=== PATIENT | female | born 1955 | race Caucasian/White ===

== ENCOUNTER 2025-07-25 17:02 | Emergency (ER) | payer OTHER, SELFPAY ==
--- OUTSIDE RECORDS SUMMARY | 2025-07-25 17:04 | XMS_ITS | Clinical Summary ---
Author Organization [employer] [facility] Address [address] [place] [address] Care Team Providers Care College Tutor Name Role Phone Arturo Gross MD Primary Care Provider Allergies No known active allergies Medications CALCIUM 500 WITH VITAMIN D 500 MG (1,250 MG)-200 UNIT TAB two tabs bid 0 8 Active alendronate (FOSAMAX) 70 mg tabletIndications: Osteoporosis, unspecified osteoporosis type, unspecified pathological fracture presence Take 1 Tablet (70 mg) by mouth once a week in the morning. Take on empty stomach with full glass of water. Do not lie down for 1 hr. 13 Tablet 3 4 Active apixaban (Eliquis) 5 mg tabletIndications: Pulmonary embolism, bilateral (HC) Take 1 Tablet (5 mg) by mouth two times daily. 180 Tablet 3 4 Active rosuvastatin (CRESTOR) 10 mg tabletIndications: Hyperlipidemia, unspecified hyperlipidemia type Take 1 Tablet (10 mg) by mouth at bedtime. 90 Tablet 3 4 Active lisinopriL (PRINIVIL; ZESTRIL) 10 mg tabletIndications: Benign essential HTN Take 1 Tablet (10 mg) by mouth once daily. 90 Tablet 5 Active lisinopriL 10 mg tabletIndications: Benign essential HTN Take 1 Tablet (10 mg) by mouth once daily. 90 Tablet 07/07/21/20 25 Discontin ued(Reord er (E-cancel not sent)) Active Problems Problem Noted Date Diagnosed Date Prediabetes 08/27/2024 Hyperlipidemia 08/27/2024 Guaiac positive stools; 11/202308/27/2024 coronary artery calcium score 43 202210/03/2023 Osteoporosis: Alendronate started June 2023 . 07/04/2023 Benign essential HTN 09/10/2021 Adenomatous colon polyp 03/13/2015 Overview (03/13/2015): Colonoscopy 02/2015 polyp repeat in 5 years Pulmonary embolism / Left DV T 07/20/2021. Lifelong anticoag per Heme 02/04/2013 Resolved Problems Problem Noted Date Diagnosed Date Resolved Date Melanoma 02/21/2023 07/04/2023 Overview (02/21/2023): 06/15/17: Left arm, malignant melanoma: Excised, Lan, 07/09/17 Malignant melanoma of left u pper extremity including shoulder 06/26/2019 08/13/2021 Other pulmonary embolism and infarction 05/21/2012 02/04/2013 alf (current) use of anticoagulants 05/21/2012 02/04/2013 Onychomycosis 05/21/2012 05/21/2012 Onychomycosis 05/21/2012 05/21/2012 Cough 07/03/2008 11/16/2020 Paroxysmal atrial tachycardia 09/27/2022 Encounters Date Type Department Care Team Description 07/21/2025 Refill [facility] [address] [place] [address] Arturo Gross MD Refill Request (LISINOPRIL 10MG TABS) 04/28/2025 Refill [facility] [address] [place] [address] Arturo Gross MD Refill Request (Lisinopril 10mg tabs) from Last 3 Months Immunizations Immunization Administration Dates Next Due COVID-19 VACCINE COMIRNATY ([employer] 30MCG/0.3ML) 12YO+ PFS 08/15/2023 COVID-19 VACCINE SPIKEVAX (M ODERNA 50MCG/0.5ML) 12YO+ PFS 08/08/2024 COVID-19 vaccine (Moderna 100mcg/0.5mL) PF, MDV 04/20/2022,12/01/2020,11/03/2020 COVID-19 vaccine (Moderna 50 mcg/0.5mL) 12YO+ BIVALENT PF, MDV 08/03/2022 COVID-19 vaccine ([employer]-Bio NTech 30mcg/0.3mL) PF, MDV 09/10/2021 Hepatitis B, Unspecified 10/09/1992,04/10/1992,0 03/03/1992 Influenza Virus, Unspecified 08/04/2015 Influenza, High-dose Inactivated 08/08/2024 Influenza, High-dose Quadriv alent Inactivated 08/15/2023,08/03/2022 Influenza, IIV3 (Age >=3 years) 08/23/20 13,08/27/2012,08/26/2008,08/25,07/30/2007,08/23/2006 Influenza, IIV4 08/13/2021, 0,07/24/2019,09/22 Pneumococcal Conj 20-valent (Prevnar 20) 09/27/2022 RSV, Bivalent Vaccine Recons tituted (Abrysvo 120MCG/0.5mL) 08/29/2023 Td (Age >=7 Years) 06/26/2019,02/02/2000 Tdap 05/09/2008 Zoster (Shingrix-RZV, recombinant) 10/21/2019, Family History Medical History Relation Name Comments Diabetes type II Father Asthma Maternal Grandfather Emphysema Maternal Grandfather Heart Disease Maternal Grandmother Alzheimer's disease Mother Hyperlipidemia Mother Cancer-breast Paternal Aunt Cancer-colon Paternal Grandfather Good Health Paternal Grandmother Lived t o age 101 Deep vein thrombosis Sister 1 Factor V Leiden deficiency Sister 1 Pulmonary embolism Sister 1 Good Health Sister 2 Good Health Sister 3 Relation Name Status Comments Father Alive Maternal Grandfather Maternal Grandmother Mother Paternal Aunt Paternal Grandfather Paternal Grandmother Sister 1 Alive Sister 2 Alive Sister 3 Alive Social History Tobacco Use Types Packs/Day Years Used Date Smoking Tobacco: Never Smokeless Tobacco: Never Tobacco Cessation:Counseling Given: No Alcohol Use Standard Drinks/Week Comments No 0 (1 standard drink = 0.6 oz pur e alcohol) PHQ-2 Answer Date Recorded PHQ-2 TOTAL SCORE 0 08/27/2024 Social Connections Answer Date Recorded Do you often feel lonely or isolated from those around you? 0 10/03/2023 Financial Resource Strain Answer Date R ecorded Difficulty of Paying Living Expenses 3 10/03/2023 Difficulty of Paying Living Expenses Not on file 10/03/2023 Food Insecurity Answer Date Recorded Do you worry your food will run out before you are able to buy more? 1 10/03/2023 Transportation Needs Answer Date Record ed Does lack of transportation keep you from medica l appointments? 1 10/03/2023 Does lack of transportation keep you from work, meetings or getting things that you need? 1 10/03/2023 Housing Stability Answer Date Recorded What is your housing situation today? 1 10/03/2023 Utilities Answer Date Recorded Do you have trouble paying f or utilities (for example, heat, electricity, water, phone)? 1 10/03/2023 Comments No Sex and Gender Information Value Date Recorded Sex Assigned at Not on file Legal Sex Female 6:59 AM STAFF RADIATION THERAPIST Gender Identity Not on file Sexual Orientation Not on file Occupation Industry Job Start Date Job End Date nurse Not on file Not on file Not on file Obstetrics History Para Term AB IAB SAB Ectopic Multiple Livin g Live Births 2 2 2 Date Outcome GA Total Labor Labor/2nd/3rd Weight Sex Type Anes PTL [place] A1 A5 Name Clin Para Para Last Filed Vital Signs Vital Sign Reading Time Taken Comments Blood Pressure 101/68 03/05/2025 9:24 AM CDT Pulse 65 03/05/2025 9:24 AM CDT Temperature 37.2 C (98.9 F) 12/11/2023 3:47 PM STAFF RADIATION THERAPIST Respiratory Rate 16 12/11/2023 5:32 PM STAFF RADIATION THERAPIST Oxygen Saturation 97% 03/05/2025 9:24 AM CDT Inhaled Oxygen Concentration - - Weight 69.2 kg (152 lb 9.6 oz) 03/05/2025 9:24 A M CDT Height 163.4 cm (5' 4.33) 08/27/2024 11:[address] Body Mass Index 25.92 08/27/2024 11:38 AM STAFF RADIATION THERAPIST Plan of Treatment Health Maintenance Due Date Last Done Comments Colonoscopy through age 75 09/11/2015 03/11/2015 COVID-19 vaccine series ( season) 2025 08/08/2024, 08/15/2023, 08/03/2022, Additional history exists Influenza Vaccine (#1) 2025 , 08/13/2021, 07/14/2020, Additional history exists BMI (ht and wt on same day) for age 18+ 08/27/2025 08/27/2024, 10/03/2023, 09/27/2022, Additional history exists Depression screening for age 12+ 08/27/2025 08/27/2024, 10/03/2023, 09/29/2022, Additional history exists Mammogram for age 45-75 01/06/2026 01/07/20, 03/09/2022, 02/16/2022, Additional history exists Tetanus booster 06/26/2029 06/26/2019, 04/22, 02/02/2000 Lipids for age 45-75 08/27/2029 08/27/2024, 09/26/2023, 09/27/2022, Additional history exists Hepatitis B series for 19+ Completed 10/09, 04/10/1992, 03/03/1992 Zoster (shingles) series for age 50+ Completed 10/21/2019, 06/26/2019 Hepatitis C screening for ag e 18-79 Completed 09/27/2022 Pneumococcal series for age 50+ Completed 2 DEXA/DXA scan for age 65+ Completed 06/01/2023, RSV vaccine for adults or Completed 08/29/2023 Procedures Procedure Name Priority Date/Time Associated Diagnosis Comments XR MAMMO ИВАН BILAT SCREEN Routine 01/06/2025 8:56 AM CDT Encounter for screening mammogram for malignant neoplasm of breast LIPID PANEL W REFLEX MEASURED LDL Routine 08/27/2024 12:05 PM STAFF RADIATION THERAPIST Hyperlipidemia, unspecified hyperlipidemia type XR DXA BONE DENSITY 2 SITES AXIAL Routine 06/01/2023 11:28 AM CDT Asymptomatic postmenopausal state ANTI HCV Routine 09/27/2022 10:54 AM STAFF RADIATION THERAPIST Need for hepatitis C screening test from Last 3 Months or Most Recently Relevant to Health Maintenance Results * XR MAMMO ИВАН BILAT SCREEN (01/06/2025 8:56 AM CDT) Anatomical Region Laterality Modality BREASTS, Breast Left, Breast Right Bilateral Mammography Impressions 01/06/2025 2:16 PM CDT There is no radiographic evidence for malignancy. Recommend annual mammograms. MAMMOGRAM ASSESSMENT: ACR 1 Negative PATIENTS: You will also receive a letter with your examination results in an easy to read format. If you have questions about your results, please contact your referring provider. Narrative 01/06/2025 2:16 PM CDT For Patients: As a result of the Century Cures Act, medical imaging exams and procedure reports are released immediately into your electronic medical record. You may view this report before your referring provider. If you have questions, please contact your health care provider. XR MAMMO ИВАН BILAT SCREEN [[id number]] CLINICAL HISTORY: This is an asymptomatic 69 y.o. patient. INDICATION FOR EXAM: Mammogram Screening. TECHNIQUE: CC and MLO views were obtained. This study was evaluated with the assistance of Computer-Aided Detection. Breast Tomosynthesis was used in interpretation. COMPARISON FILM: Yes 02/16/22 [facility] 01/14/21 [facility] FINDINGS: There are scattered areas of fibroglandular density. There are no dominant masses, suspicious micro calcifications or areas of architectural distortion. us Arturo Gross MD MAMMO Final Result * (ABNORMAL) LIPID PANEL W REFLEX MEASURED LDL (08/27/2024 12:05 PM STAFF RADIATION THERAPIST) CHOLESTEROL, TOTAL 111 <200 mg/dL [facility] HDL CHOLESTEROL 44(L) > OR = 50 mg/dL [facility] TRIGLYCERIDES 113 <150 mg/dL [facility] LDL-CHOLESTEROL 47 mg/dL (calc) [facility] Comment: Reference range: <100 Desirable range <100 mg/dL for primary prevention; <70 mg/dL for patients with CHD or diabetic patients with > or = 2 CHD risk factors. LDL-C is now calculated using the Sanjeev calculation, which is a validated novel method providing better accuracy than the Friedewald equation in the estimation of LDL-C. Kiko KLINE et al. MAT. 2013;310(19): 7806-6614 (http://education.ViaBill/faq/YFR875) CHOL/HDLC RATIO 2.5 <5.0 (calc) [facility] NON HDL CHOLESTEROL 67 <130 mg/dL (calc) [facility] Comment: For patients with diabetes plus 1 major ASCVD risk factor, treating to a non-HDL-C goal of <100 mg/dL (LDL-C of <70 mg/dL) is considered a therapeutic option. Blood BLOOD SPECIMEN / Unknown 08/27/2024 12:05 PM STAFF RADIATION THERAPIST 08/27/2024 12:06 PM STAFF RADIATION THERAPIST Arturo Gross MD CHEMISTRY Final Result [facility] [address] [place] [address], [facility] [address] [place] [address] * (ABNORMAL) XR DXA BONE DENSITY 2 SITES AXIAL (06/01/2023 11:28 AM CDT) Anatomical Region Laterality Modality Spine, HIPS, HIPL, HIPR Other Impressions 06/06/2023 12:28 PM CDT Osteoporosis. RECOMMENDATIONS: The National Osteoporosis Foundation recommends pharmacologic treatment for patients with T-scores of -2.5 or less, patients with prior history of fragility fractures, or patients with 10-year probability of greater than 3% at hips or greater than 20% of suffering major osteoporotic fractures. Recommend continued optimization of calcium and vitamin D intake through dietary means and/or supplementation and regular exercise. Consider pharmacologic therapy for osteoporosis. Follow-up bone density reading in 2 years if therapy initiated to assess therapeutic efficacy. Leonie Santamaria PA-C [facility] 06/06/2023 Narrative 06/06/2023 12:28 PM CDT For Patients: Results are automatically released to your [facility] ([facility]) account once available, in compliance with federal regulations. This means that you may see your results before your provider has had a chance to review them. Please allow 2-3 business days for your provider to comment on the results. XR DXA Bone Mineral Density (BMD) EXAM LOCATION: [facility] [address] [facility] [address] PATIENT NAME: Lisbet Mirza DATE OF : 1955 EXAM DATE: 06/01/2023 REQUESTING PROVIDER: Arturo Gross MD GENDER AT : female HEIGHT: 5' 4.29 (09/27/2022) WEIGHT: 151 lb (04/19/2023) MENOPAUSAL STATUS: Postmenopausal RACE/ETHNICITY: White RISK FACTORS: Height Loss (2 inches or more) and White Race CURRENT MEDICATION FOR BONE LOSS: NONE INDICATION: Follow-up of existing osteopenia and Post-Menopause COMPARISON DATE(S): 2006 DXA scans are compared to prior studies for a patient only when the two (or more) studies were performed on the same scanner. It is not possible to compare data generated on one scanner to data from another because there are not standards in DXA equipment. This applies even if the two scanners are made by the same scanning tech. PROCEDURE: Dual-energy x-ray absorptiometry performed with routine technique. Reporting is completed in the form of a T-score. The T-score represents the standard deviation from peak bone mass based on young healthy adult. A Z-score is used for diagnosis in premenopausal women, and for men under the age of 50. FINDINGS: RESULT LUMBAR SPINE L1 - L4 BMD: 0.807 g/cm2 T-Score: - 3.1 Z-Score: - 1.5 Change from prior in 2006: Decrease 20.6%. RESULTS FEMUR Left femoral neck BMD: 0.742 g/cm2 T-Score: - 2.1 Z-Score: - 0.6 Change from prior in 2006: Decrease 14.6%. Right femoral neck BMD: 0.700 g/cm2 T-Score: - 2.4 Z-Score: - 0.9 Change from prior in 2007: Decrease 18.1%. Left hip BMD: 0.709 g/cm2 T-Score: - 2.4 Z-Score: - 1.1 Change from prior in 2006: Decrease 15.9%. Right hip BMD: 0.695 g/cm2 T-Score: - 2.5 Z-Score: - 1.2 Change from prior in 2006: Decrease 14.1%. WHO criteria: Normal: T-score at or above -1 SD Osteopenia: T-score between -1.1 and -2.4 SD Osteoporosis: T-score at or below -2.5 SD FRAX RISK CALCULATION (USED FOR OSTEOPENIA ONLY): 10-year probability of major osteoporotic fracture: 12.9%. 10-year probability of hip fracture: 2.8%. us Arturo Gross MD DEXA Final Result * ANTI HCV (09/27/2022 10:54 AM STAFF RADIATION THERAPIST) [facility] HEPATITIS C ANTIBODY Non-React imelda Non-React imelda 09/29/2022 3:00 PM STAFF RADIATION THERAPIST [facility] Comment:Antibodies to HCV no t detected; does not exclude the possibility of exposure to HCV. Blood BLOOD SPECIMEN / Unknown Venipuncture / Unknown 09/27/2022 10:54 AM STAFF RADIATION THERAPIST 09/27/2022 10:54 AM STAFF RADIATION THERAPIST us Arturo Gross MD SEND OUTS Final Result [facility] [address] [place] [address], [place] from Last 3 Months or Most Recently Relevant to Health Maintenance Insurance [id number] [place] [id number] [facility] [address] [place] [id number] Advance Directives Documents on File Type Date Recorded Patient Classroom Coordinator Expl anation Healthcare Directive 01/11/2021 05/10/2021 Healthcare Directive 01/11/2021 021 Care Teams College Tutor Relationship Specialty Start Date End Date Arturo Gross MD [address] [place] [address] PCP - General Family Practice 11/16/20
[2025-07-25 17:17] VITALS: BP 117/77; PULSE 91; RESP 16; TEMP 37.1; O2SAT 91; BMI 22.6
== END 2025-07-25 17:46 | disposition left against medical advice (07) ==
PROVIDERS: Emergency Provider Family Medicine; PCP Family Medicine
DX: Z53.21 Procedure and treatment not carried out due to patient leaving prior to being seen by health care provider (principal)
CPT/HCPCS: 99281

== ENCOUNTER 2025-07-29 16:25 | Emergency (ER) | payer OTHER, SELFPAY ==
--- OUTSIDE RECORDS SUMMARY | 2025-07-29 16:27 | XMS_ITS | Clinical Summary ---
Author Organization [employer] [facility] Address [address] [place] [address] Care Team Providers Care Food Crops Farm Hand Name Role Phone Arturo Gross MD Primary [...] Other pulmonary embolism and infarction 05/21/2012 02/04/2013 senior living (current) use of anticoagulants 05/21/2012 02/04/2013 Onychomycosis 05/21/2012 05/21/2012 Onychomycosis 05/21/2012 05/21/2012 Cough 07/03/2008 11/16/2020 Paroxysmal atrial tachycardia 09/27/2022 Encounters Date Type Department Care Team Description 07/29/2025 Nurse Triage [facility] Centralized Nurse Triage Arturo Gross MD Blood In Urine 07/21/2025 Refill [facility] [address] [place] [address] Arturo Gross MD Refill Request (LISINOPRIL 10MG TABS) 04/28/2025 Refill [facility] [address] [place] [address] Arturo Gross MD Refill Request (Lisinopril 10mg tabs) from Last 3 Months Immunizations Immunization Administration Dates Next Due COVID-19 VACCINE COMIRNATY (PFI[employer]ER-BIONTECH 30MCG/0.3ML) 12YO+ PFS 08/15/2023 COVID-19 VACCINE SPIKEVAX (M ODERNA 50MCG/0.5ML) 12YO+ PFS 08/08/2024 COVID-19 vaccine (Moderna 100mcg/0.5mL) PF, MDV 04/20/2022,12/01/2020,11/03/2020 COVID-19 vaccine (Moderna 50 mcg/0.5mL) 12YO+ BIVALENT PF, MDV 08/03/2022 COVID-19 vaccine (Pfizer-Bio NTech 30mcg/0.3mL) PF, MDV 09/10/2021 Hepatitis B, [...] on file Legal Sex Female 6:59 AM ENVIRONMENTAL LEAD Gender Identity Not on file Sexual Orientation [...] 37.2 C (98.9 F) 12/11/2023 3:47 PM ENVIRONMENTAL LEAD Respiratory Rate 16 12/11/2023 5:32 PM ENVIRONMENTAL LEAD Oxygen Saturation 97% 03/05/2025 9:24 AM CDT Inhaled Oxygen Concentration - - Weight 69.2 kg (152 lb 9.6 oz) 03/05/2025 9:24 A M CDT Height 163.4 cm (5' 4.33) 08/27/2024 11:[address] Body Mass Index 25.92 08/27/2024 11:38 AM ENVIRONMENTAL LEAD Plan of Treatment Upcoming Encounters Date Type Department Care Team (Late st Contact Info) Description 09/01/2025 10:05 AM ENVIRONMENTAL LEAD Office Visit [facility] [address] [place] [address] Arturo Gross MD [address] [place] [address] Health Maintenance Due Date Last Done Comments [...] 09/27/2022 Pneumococcal series for age 50+ Completed DEXA/DXA scan for age 65+ Completed 06/01/2023, RSV vaccine for adults or Completed 08/29/2023 Procedures Procedure Name Priority Date/Time Associated Diagnosis Comments XR MAMMO ИВАН BILAT SCREEN Routine 01/06/2025 8:56 AM CDT Encounter for screening mammogram for malignant neoplasm of breast LIPID PANEL W REFLEX MEASURED LDL Routine 08/27/2024 12:05 PM ENVIRONMENTAL LEAD Hyperlipidemia, unspecified hyperlipidemia type XR DXA BONE DENSITY 2 SITES AXIAL Routine 06/01/2023 11:28 AM CDT Asymptomatic postmenopausal state ANTI HCV Routine 09/27/2022 10:54 AM ENVIRONMENTAL LEAD Need for hepatitis C screening test from [...] contact your health care provider. XR MAMMO ИАВН BILAT SCREEN [[id number]] CLINICAL HISTORY: This is an asymptomatic 69 y.o. patient. INDICATION FOR EXAM: Mammogram Screening. TECHNIQUE: CC and MLO views were obtained. This study was evaluated with the assistance of Computer-Aided Detection. Breast Tomosynthesis was used in interpretation. COMPARISON FILM: Yes 02/16/22 [facility] 01/14/21 [facility] FINDINGS: There are scattered areas of fibroglandular density. There are no dominant masses, suspicious micro calcifications or areas of architectural distortion. Arturo Gross MD MAMMO Final Result * (ABNORMAL) LIPID PANEL W REFLEX MEASURED LDL (08/27/2024 12:05 PM ENVIRONMENTAL LEAD) CHOLESTEROL, TOTAL 111 <200 mg/dL [facility] LDL-C. Kiko KLINE et al. MAT. 2013;310(19): 2848-5730 (http://education.Set.fm/faq/NSW284) CHOL/HDLC RATIO 2.5 <5.0 (calc) [facility] NON HDL CHOLESTEROL 67 <130 mg/dL (calc) [facility] Comment: For patients with diabetes plus 1 major ASCVD risk factor, treating to a non-HDL-C goal of <100 mg/dL (LDL-C of <70 mg/dL) is considered a therapeutic option. Blood BLOOD SPECIMEN / Unknown 08/27/2024 12:05 PM ENVIRONMENTAL LEAD 08/27/2024 12:06 PM ENVIRONMENTAL LEAD us Arturo Gross MD CHEMISTRY Final Result [facility] [address] [place] [address], [employer] [address] [place] [address] * (ABNORMAL) XR DXA BONE DENSITY 2 [...] to assess therapeutic efficacy. Leonie Santamaria PA-C [facility] 06/06/2023 Narrative 06/06/2023 12:28 PM CDT For Patients: Results are automatically released to your [facility] ([facility]) account once available, in compliance with federal regulations. This means that you may see your results before your provider has had a chance to review them. Please allow 2-3 business days for your provider to comment on the results. XR DXA Bone Mineral Density (BMD) EXAM LOCATION: [address] [address] PATIENT NAME: Lisbet Mirza DATE OF : [...] two scanners are made by the same film composer. PROCEDURE: Dual-energy x-ray absorptiometry performed with routine [...] Z-Score: - 0.9 Change from prior in 2006: Decrease 18.1%. Left hip BMD: 0.709 g/cm2 [...] 12.9%. 10-year probability of hip fracture: 2.8%. Arturo Gross MD DEXA Final Result * ANTI HCV (09/27/2022 10:54 AM ENVIRONMENTAL LEAD) Pathologist [facility] HEPATITIS C ANTIBODY Non-React imelda Non-React imelda 09/29/2022 3:00 PM ENVIRONMENTAL LEAD [facility] Comment:Antibodies to HCV no t detected; does not exclude the possibility of exposure to HCV. Blood BLOOD SPECIMEN / Unknown Venipuncture / Unknown 09/27/2022 10:54 AM ENVIRONMENTAL LEAD 09/27/2022 10:54 AM ENVIRONMENTAL LEAD Arturo Gross MD SEND OUTS Final Result [facility] [address] [place] [address], from Last 3 Months or Most Recently Relevant to Health Maintenance Insurance [facility] Advance Directives Documents on File Type Date Recorded Patient Subscription Agent Expl anation Healthcare Directive 01/11/2021 05/10/2021 Healthcare Directive 01/11/2021 021 Care Teams Food Cro[employer] Farm Hand Relationship Specialty Start Date End Date Arturo Gross [place] [address] PCP - General Family Practice 11/16/20
[2025-07-29 16:33] VITALS: BP 154/94; PULSE 84; RESP 18; TEMP 36.5; O2SAT 97; BMI 24.0
--- NOTE | 2025-07-29 16:40 | ED.GENADULT ---
HPI - General Adult General Chief complaint: Urogenital Problems, Female Stated complaint: blood in urine Time Seen by Provider: 07/29/25 16:40 History of Present Illness HPI narrative: pt c/o blood in urine that started at noon . L low back painful. also has chills off and on. painful with urination , frequency too . 70-year-old woman presenting to the emergency department with concern of blood in her urine. Symptoms began about 5 hours ago. Left low/mid back pain beginning today as well. No fever but has felt chilled. Dysuria and hematuria and frequency. Says it has been about 30 years since her last UTI. Nothing has changed for her recently as far she knows. No trauma. Has been taking Eliquis for about 5 years now without difficulty/problems Related Data Home Medications ?Medication ?Instructions ?Recorded ?Confirmed Cozaar 07/29/25 apixaban 5 mg tablet (Eliquis) 5 mg PO BID 07/29/25 07/29/25 lisinopril 10 mg tablet 10 mg PO DAILY 07/29/25 07/29/25 multivitamin 07/29/25 Allergies Allergy/AdvReac Type Severity Reaction Status Date / Time No Known Drug Allergies Allergy Verified 07/29/25 16:37 Review of Systems Status of ROS: Reports: 6 or more systems reviewed and unremarkable except as noted in History and below [facility] Social History Smoking Status: Current every day smoker What tobacco products do you use: cigarettes Smoking packs per day: 0.5 Smoking cigarettes per day: 10.0 How often do you have a drink containing alcohol: never AUDIT-C Alcohol total score: 0 Non-prescribed substance use: denies use service: No Exam Narrative: Exam Narrative: Afebrile. Very pleasant. NAD. Breathing easily. Heart in regular rate and rhythm. Is sore to percussion in the left mid flank; not elsewhere in the back. Abdomen is soft and nontender otherwise. Extremities are well perfused without edema. Genitourinary exam was not done. No unusual bruising on her skin. Const: Vital Signs, click to edit/add: Vital Signs - 24 hr 07/29/25 16:33 Temperature 97.7 F Pulse Rate [Pulse Oximeter] 84 Respiratory Rate 18 Blood Pressure [Ri ght Upper Arm] 154/94 H Pulse Oximetry 97 Oxygen Delivery Me thod Room Air Documenting provider has reviewed patient's vital signs: yes Course Vital Signs Vital signs: Initial Vital Signs Temperature 97.7 F 07/29/25 16:33 Temperature Source Temporal Artery Scan 07/29/25 16:33 Pulse Rate 84 07/29/25 16:33 Respiratory Rate 18 07/29/25 16:33 Blood Pressure 154/94 H 07/29/25 16:33 Blood Pressure Mean 114 H 07/29/25 16:33 Blood Pressure Position Sitting 07/29/25 16:33 Pulse Oximetry 97 07/29/25 16:33 Oxygen Delivery Method Room Air 07/29/25 16:33 Vital Signs Temperature 97.7 F 07/29/25 16:33 Pulse Rate 84 07/29/25 16:33 Respiratory Rate 18 07/29/25 16:33 Blood Pressure 154/94 H 07/29/25 16:33 Pulse Oximetry 97 07/29/25 16:33 Oxygen Delivery Method Room Air 07/29/25 16:33 Temperature 97.7 F 07/29/25 16:33 Pulse Rate 84 07/29/25 16:33 Respiratory Rate 18 07/29/25 16:33 Blood Pressure 154/94 H 07/29/25 16:33 Pulse Oximetry 97 07/29/25 16:33 Oxygen Delivery Method Room Air 07/29/25 16:33 Medical Decision Making MDM Narrative Medical decision making narrative: Symptoms are consistent with a cystitis/UTI. Vitals are reassuring. Does not have prodrome to suggest some sort of nephritis otherwise. No unusual discharge noted to suggest other infection. No trouble historically with Eliquis. At this point I do not think need to check CBC/hemoglobin/platelets. Likely bleeding related to anticoagulated with cystitis. Degree of discomfort inconsistent with ureteral stone/colic but possible. Urinalysis has been collected. If no evidence of infection would workup further. Urinalysis does look infected, but I might have expected more leukocyte esterase, along with decent amount of blood. No nitrite. Discussed findings with Lisbet. She is inclined to treat for infection. See patient discharge plan for further discussion Stay well-hydrated with water. The seen for marked increase in bleeding, marked increase in persistent pain, repeated vomiting, increasing fever. I am prescribing cephalexin as an antibiotic from [facility]. Also from [facility] phenazopyridine for urinary burning as discussed. A urine culture will be pending here. We will call you if changes might need to be made antibiotics or other treatment. Medical Records Medical records reviewed: Yes I reviewed the patient's medical records Lab Data Lab results reviewed: Yes I reviewed the patient's lab results Labs: Lab Results 07/29/25 Range/Units 16:40 Urine Color Red A (Yellow) Urine Appearance Cloudy A (Clear) Urine pH 7.0 (5.0-8.5) Ur Specific [place] 1.015 (1.000-1.030) Urine Protein 2+ A (Negative) Urine Glucose (UA) Negative (Negative) Urine Ketones Negative (Negative) Urine Blood 3+ A (Negative) Urine Nitrite Negative (Negative) Urine Bilirubin Negative (Negative) Urine Urobilinogen 0.2 (0.2-1.0) Ur Leukocyte Esterase 1+ A (Negative) Urine RBC 50-100 A (0-2) Urine WBC 50-100 A (0-5) Ur Squamous Epith Cells None (None-Few) Urine Bacteria None (None) Discharge Plan Discharge Clinical Impression: Urinary tract infection, Hematuria Patient Disposition: Home, Self-Care Condition: Stable Additional Instructions: Stay well-hydrated with water. The seen for marked increase in bleeding, marked increase in persistent pain, repeated vomiting, increasing fever. I am prescribing cephalexin as an antibiotic from [facility]. Also from [facility] phenazopyridine for urinary burning as discussed. A urine culture will be pending here. We will call you if changes might need to be made antibiotics or other treatment. Prescriptions: No Action lisinopril 10 mg tablet 10 mg PO DAILY Eliquis 5 mg tablet 5 mg PO BID Cozaar multivitamin Follow Up/Referrals: Arturo Gross MD [Primary Care Provider, Family Practice] Stand Alone Forms: [facility] Info Instructions
[2025-07-29 17:06] LABS: Appearance Urine Cloudy (Clear)
== END 2025-07-29 17:55 | disposition home or self-care (01) ==
PROVIDERS: Emergency Provider Family Medicine; PCP Family Medicine
DX: N39.0 Urinary tract infection, site not specified (principal); R31.9 Hematuria, unspecified
CPT/HCPCS: 81001; 87086; 99283; 99284